=== PATIENT | female | born 1940 | race Caucasian/White ===

== ENCOUNTER 2016-12-20 11:17 | Inpatient (IN) | payer MEDICARE, BC ==
--- NOTE | 2016-12-08 15:45 | HP ---
HISTORY AND PHYSICAL: DATE OF SURGERY: 12/20/16 SURGEON: Lucy Warner MD * (DICTATED BY KOBE FU) PROCEDURE: Right total hip arthroplasty. CHIEF COMPLAINT: Right hip pain. HISTORY OF PRESENT ILLNESS: Ms. Juarez is a 76-year-old female with continued complaints of right hip pain secondary to advanced osteoarthritis. She has failed conservative management and has elected to proceed with a right total hip arthroplasty, which is scheduled for 12/20/[address] Warner. PAST MEDICAL HISTORY: Osteoarthritis. PAST SURGICAL HISTORY: Tonsillectomy, adenoidectomy. CURRENT MEDICATIONS: 1. Naproxen. 2. Triamcinolone acetonide cream. ALLERGIES: LAMISIL. FAMILY HISTORY: Rheumatoid arthritis and Parkinson's. SOCIAL HISTORY: She is a 76-year-old female. She lives with her . She does not smoke or use drugs. She uses occasional alcohol. REVIEW OF SYSTEMS: A complete 14-point review of systems was reviewed with the patient, was all negative and noncontributory. PHYSICAL EXAMINATION GENERAL: She is well developed, well nourished, in no acute distress. VITAL SIGNS: She stands 5 feet 1 inch tall and weighs 137 pounds. Blood pressure is 128/70, heart rate is 86. HEENT: Normocephalic, atraumatic. NECK: Supple. No palpable lymph nodes. CARDIO: Regular rate and rhythm. Strong S1, S2. ABDOMEN: Soft, nontender, nondistended. NEUROLOGICAL: Alert and oriented x3. Cranial nerves II through XII are intact. MUSCULOSKELETAL: Right lower extremity, the skin is intact. There are no open wounds or abrasions. She has decreased internal and external rotation of her right hip. She walks with a slightly antalgic-type gait favoring her right leg , 2+ dorsalis pedis pulses, intact sensation, and all of her lower extremity muscle group strengths are intact at 5/5. ASSESSMENT AND PLAN: Ms. Juarez is a 76-year-old female with complaints of right hip pain secondary to advanced osteoarthritis. She has failed conservative management and has elected to proceed with a right total hip arthroplasty, which is scheduled on 12/20/[address] Warner discussed the risks and benefits of the surgery and all of her questions were answered. Percocet, Colace, and Coumadin were sent to her pharmacy for postoperative pain control and DVT prophylaxis. She will see Dr. Warner back 2 weeks after the surgery. KOBE FU [id number]/[facility] #: [id number] MTDD
[~2016-12-20 11:17] MED LIST: Buffered Lidocaine 0.9% SYRIN* 5 ML/SYR SYRINGE INTRADERM ONE; Famotidine IV* 10 MG/ML 2 ML (20 mg) IV ONE; Metoclopramide TAB* 10 MG PO ONE
[2016-12-20] MEDS ORDERED: Famotidine IV* 10 MG/ML 2 ML (20 mg) ONE (11:30)
[2016-12-20] MEDS ORDERED: Metoclopramide TAB* 10 MG ONE (11:30)
[2016-12-20] MEDS ORDERED: Buffered Lidocaine 0.9% SYRIN* 5 ML/SYR SYRINGE ONE (11:31)
[2016-12-20] MEDS ORDERED: ceFAZolin 2 GM PREMIX (*) 50 ML IVPB ONE (11:31)
[2016-12-20] MEDS ORDERED: Dexamethasone IV* 4 MG/ML 1 ML (4 MG) ONE (12:37)
[2016-12-20] MEDS ORDERED: Morphine PF AMP (0.5MG/ML)* 5 MG/10 ML AMP ONE (12:37)
[2016-12-20] MEDS ORDERED: Ondansetron INJ* 2 MG/ML VIAL ONE (12:37)
[2016-12-20] MEDS ORDERED: Propofol* 10 MG/ML 20 ML BTL IV PUSH ONE ×2 (12:37→14:14)
[2016-12-20] MEDS ORDERED: Ketorolac INJ* 30 MG/ML 1 ML VIAL ONE (12:37)
[2016-12-20] MEDS ORDERED: Midazolam* 1 MG/ML 5 ML VIAL (5 MG) ONE (12:37)
[2016-12-20] MEDS ORDERED: Bupivacaine 0.5% SDV PF* 30 ML VIAL ONE (12:37)
[2016-12-20] MEDS ORDERED: Lidocaine 2% PF * 5 ML VIAL ONE (12:37)
[2016-12-20] MEDS ORDERED: fentaNYL* 50 MCG/ML 2 ML VIAL (100 MCG VIAL) ONE (12:37)
[2016-12-20] MEDS ORDERED: KETAMINE HCL* 50 MG/ML 10 ML VIAL ONE (12:37)
[2016-12-20] MEDS ORDERED: Phenylephrine INJ* 10 MG/ML 1 ML VIAL (10 MG) ONE ×2 (14:11→14:14)
[2016-12-20] MEDS ORDERED: Phenylephrine INJ* 50 MG in NS 0.9% 250 ML* 245 ML IV PRN (15:40)
[2016-12-20] MEDS ORDERED: Ondansetron INJ* 2 MG/ML VIAL IV PRN (15:40)
[2016-12-20] MEDS ORDERED: fentaNYL* 50 MCG/ML 2 ML VIAL (100 MCG VIAL) IV PRN (15:40)
[2016-12-20] MEDS ORDERED: diPHENhydraMINE IV* 50 MG/ML 1 ml VIAL (BENADRYL) IV PRN ×2 (15:40→15:43)
[2016-12-20] MEDS ORDERED: oxyCODONE/Acetamin 5/325 MG* TAB PO PRN ×2 (15:43)
[2016-12-20] MEDS ORDERED: EPHEDrine (Pressors)* 50 MG/ML VIAL IV PUSH PRN (15:43)
[2016-12-20] MEDS ORDERED: Lactated Ringers 500 ml BAG* 500 ML IV PRN (15:43)
--- NOTE | 2016-12-20 15:46 | RAD ---
HISTORY: Right hip replacement COMPARISONS: November 01, 2016 VIEWS: 1, portable intraoperative views of the pelvis during hip arthroplasty FINDINGS: The patient is status post right hip arthroplasty with a temporary femoral sizing component. IMPRESSION: LIMITED PORTABLE VIEW OF THE PELVIS DURING RIGHT HIP ARTHROPLASTY
[2016-12-20] MEDS ORDERED: Naloxone* 0.4 MG/ML 1 ML VIAL IV PRN (15:47)
[2016-12-20] MEDS ORDERED: Ropivacaine* 300 MG in NS 0.9% 250 ML* 240 ML EPIDURAL SCH (16:00)
--- NOTE | 2016-12-20 16:18 | RAD ---
Indication: Right hip replacement. Single view of the right hip taken in the operating room demonstrates femoral reamer and acetabular cup is in place. IMPRESSION: Intraoperative control films for right hip arthroplasty.
[2016-12-20] MEDS ORDERED: Acetaminophen TAB* 325 MG PO PRN (16:43)
[2016-12-20] MEDS ORDERED: Polyethylene Glycol 3350* 17 GM PACKET PO PRN (16:46)
[2016-12-20] MEDS ORDERED: Bisacodyl SUPP* 10 MG SUPP PR PRN (16:46)
[2016-12-20] MEDS ORDERED: Magnesium Hydroxide LIQ* 30 ML UDC PO PRN (16:46)
--- NOTE | 2016-12-20 17:37 | RAD ---
INDICATION: Status post total right hip replacement surgery. COMPARISON: Comparison is made with a prior intraoperative study of the same day. TECHNIQUE: AP and lateral films of the right hip were obtained. FINDINGS: The patient is status post total right hip replacement surgery. The bones and prostheses are in normal alignment. There is air within the soft tissues consistent with the patient's recent surgery. IMPRESSION: STATUS POST TOTAL RIGHT HIP REPLACEMENT SURGERY.
--- NOTE | 2016-12-20 17:38 | RAD ---
INDICATION: Status post total right hip replacement surgery. COMPARISON: Comparison is made with a intraoperative study of the same day. TECHNIQUE: An AP view of the pelvis was obtained. FINDINGS: The patient is status post total right hip replacement surgery. The bones and prostheses are in normal alignment. There is air within the surrounding soft tissues consistent with the patient's recent surgery. Note is made of moderate osteoarthritic change in the left hip. IMPRESSION: STATUS POST TOTAL RIGHT HIP REPLACEMENT SURGERY.
[2016-12-20] MEDS: Ondansetron INJ* 2 MG/ML VIAL IV PRN (20:49)
[2016-12-20] MEDS ORDERED: Warfarin TAB(*) 6 MG PO ONE (21:00)
[2016-12-20] MEDS: ceFAZolin 1 GM VIAL(*) 1 GM in NS 0.9% 50 ML* 50 ML IVPB SCH (21:51)
[2016-12-20] MEDS: Docusate CAP* 100 MG PO SCH (22:46)
[2016-12-21] MEDS: Ondansetron INJ* 2 MG/ML VIAL IV PRN (04:52)
[2016-12-21] MEDS: ceFAZolin 1 GM VIAL(*) 1 GM in NS 0.9% 50 ML* 50 ML IVPB SCH ×2 (05:47→13:16)
[2016-12-21] MEDS ORDERED: Morphine INJ* 2 MG/ML 1 ML SYRINGE (TWO MG - NEW SYRINGE VERSION) IV PRN (06:00)
[2016-12-21] MEDS ORDERED: oxyCODONE TAB* 5 MG TAB PO PRN (06:00)
[2016-12-21] MEDS ORDERED: diPHENhydraMINE IV* 50 MG/ML 1 ml VIAL (BENADRYL) IV PRN (06:00)
[2016-12-21] MEDS ORDERED: Ondansetron TAB* 4 MG PO PRN (06:00)
[2016-12-21] MEDS ORDERED: oxyCODONE/Acetamin 5/325 MG* TAB PO PRN (06:00)
[2016-12-21 06:32] LABS: Hematocrit 24 % (35-47); Hemoglobin 8.1 g/dl (12.0-16.0)
[2016-12-21 06:48] LABS: BUN/Creatinine Ratio 23.9 (8-20); Calcium 8.9 mg/dL (8.6-10.3); EGFR African American 102.4 (>60); EGFR Non-African American 79.6 (>60); Potassium 4.3 mmol/L (3.5-5.0)
--- NOTE | 2016-12-21 07:55 | PN ---
Progress Note - Progress Note Date of Service: 12/21/16 SOAP: Subjective: pt resting comfortably with no complaints, pain well controlled with current meds Objective: Vital Signs Temp Pulse Resp BP Pulse Ox 98.1 F 81 18 103/49 97 12/21/16 07:27 12/21/16 07:27 12/21/16 07:27 12/21/16 07:27 12/21/16 07:27 Laboratory Last Values Hgb 8.1 g/dl (12.0-16.0) L 12/21/16 05:43 Hct 24 % (35-47) L 12/21/16 05:43 INR (Anticoag Therapy) 0.89 (0.89-1.11) 12/21/16 05:43 Sodium 132 mmol/L (133-145) L 12/21/16 05:43 Potassium 4.3 mmol/L (3.5-5.0) 12/21/16 05:43 Chloride 102 mmol/L (101-111) 12/21/16 05:43 Carbon Dioxide 23 mmol/L (22-32) 12/21/16 05:43 Anion Gap 7 mmol/L (2-11) 12/21/16 05:43 BUN 17 mg/dL (6-24) 12/21/16 05:43 Creatinine 0.71 mg/dL (0.51-0.95) 12/21/16 05:43 Est GFR ( Amer) 102.4 (>60) 12/21/16 05:43 Est GFR (Non-Af Amer) 79.6 (>60) 12/21/16 05:43 BUN/Creatinine Ratio 23.9 (8-20) H 12/21/16 05:43 Glucose 136 mg/dL (70-100) H 12/21/16 05:43 Calcium 8.9 mg/dL (8.6-10.3) 12/21/16 05:43 incision: c/d/i PE: NVI Assessment: s/p right BEV Plan: [1) continue PT/OT-WBAT 2) Lovenox/ coumadin for DVT prophylaxis 3) Abx for 24 hours post-op
[2016-12-21] MEDS: oxyCODONE/Acetamin 5/325 MG* TAB PO PRN ×2 (09:11→18:51)
[2016-12-21] MEDS: Docusate CAP* 100 MG PO SCH ×2 (09:12→20:34)
[2016-12-21] MEDS ORDERED: Enoxaparin(*) 30 MG/0.3 ML SYR SUBCUT SCH (13:00)
--- NOTE | 2016-12-21 15:20 | OP ---
OPERATIVE NOTE: DATE OF OPERATION: 12/20/16 - Inpatient, [facility] room 350-02 DATE OF : 36 ATTENDING SURGEON: Lucy Warner MD DATA COMMUNICATIONS TECHNICIAN: KOBE Khoury Ms. Abreu did help throughout the procedure with preparation of the leg, wound retraction, manipulation of the hip and wound closure. ANESTHESIOLOGIST: Dr. Genao. ANESTHESIA: Spinal. PRE-OP DIAGNOSIS: Severe end-stage degenerative osteoarthritis of the right hip joint. POST-OP DIAGNOSIS: Severe end-stage degenerative osteoarthritis of the right hip joint. PROCEDURE PERFORMED: Right total hip arthroplasty with acetabular autograft, bone autografting. HARDWARE USED: An uncemented [place] total hip arthroplasty hardware with a cup , a Tritanium hemisphere cluster hole shell 52D, a single 20-mm and a single 25- mm screw were used. Trident X3 10-degree polyethylene insert 32B was chosen. For the femoral stem, an Accolate TMZF size 3.5 with a 127-degree neck was used. For the head, a Biolox delta ceramic V40 femoral head 32 -4. COMPLICATIONS: None. EBL: 300 cc. SPECIMENS: Femoral head and acetabulum sent to pathology. BRIEF HISTORY/INDICATION: Ms. Juarez is a 76-year-old female with at least 1 year of increasingly severe right hip pain. She failed conservative management with antiinflammatory, pain medications, physical therapy, and ambulatory assistive devices. Her radiographs confirmed moxz-ie-vocl arthritis and significant subchondral sclerosis and cyst formation. She elected to undergo right total hip arthroplasty due to continued pain and decreased quality of life. Informed consent was obtained from the patient. She understood the risks of the surgery included, but were not limited to bleeding, infection, damage to nearby structures, continued pain, need for further surgery, intraoperative fracture, nerve palsy, hardware failure or loosening, dislocation , leg length discrepancy, stroke, heart attack, blood clot and . She wished to proceed. INTRAOPERATIVE FINDINGS: Intraoperatively, the patient was noted to have severe loss of cartilage along the femoral head and acetabulum. Acetabulum had subchondral cyst formation, which was significant and required autografting with acetabular bone reamings. The patient was noted to have significant osteopenia. DESCRIPTION OF PROCEDURE: Ms. Juarez was identified in the preanesthesia unit. Her right lower extremity was marked as the correct operative side. Informed consent was obtained and signed and placed in the chart. The patient was taken to the operating room and placed under spinal anesthesia. A Martínez catheter was placed. She was placed on the left lateral decubitus position on the PEG board. All bony prominences were well padded. Right lower extremity was prepped and draped in the usual sterile fashion. Preop time-out was made to correctly identity the patient's side and site. Appropriate perioperative antibiotics were given within 1 hour of incision. A 12-cm posterior hip incision was made with a 10 blade and carried down to the lateral fascial layer. The 10 blade was used to make an incision in the lateral fascia in line with skin incision. A Charnley retractor was placed. The piriformis and conjoint tendons were identified. These were elevated off the posterolateral femur using electrocautery and tagged with #5 Ethibonds. Electrocautery was next used to make a standard posterolateral capsular flap and this was also tagged with #5 Ethibonds. The hip was carefully dislocated. There was complete loss of cartilage along the femoral head with deformation of the femoral head. Acetabulum was also deformed with extensive osteophyte formation and thin anterior and posterior armstrong. There was visible subchondral sclerosis and cyst formation. Lesser troch to the center of the femoral head measured 50 mm. Oscillating saw was used to make appropriate femoral neck cut. The femur was carefully retracted anteriorly. After appropriate placement of retractors, the acetabulum was visualized. Long-handled knife was used to remove any remaining labrum from the acetabular rim. The acetabulum was carefully and sequentially reamed up to a size #51. Size-51 reamer had excellent fit as well as bleeding subchondral bone bed. There was significant subchondral cyst formation. Curette was used to remove any cystic material and this area was packed with bone autograft from acetabular reamings. 51 trial was placed and had satisfactory fit. Final implant chosen was a 52-mm D Tritanium cluster hole shell. This was impacted into the acetabulum without difficulty. The cup was stable with appropriate anteversion and abduction angles. A single 20-mm and a single 25-mm screw was placed in the superior posterior quadrants for extra stability. A Trident X3 10 degree polyethylene insert was chosen size 32B. This was impacted into the acetabulum without difficulty. Stability of the insert was checked and rechecked and noted to be stable. Attention was next turned to preparation of the femur. Femur was noted to be quite active osteopenic. Canal finder was used to enter the femur. Femur was sequentially broached up to a size 3.5. 3.5 broach had excellent fit and appropriate anteversion. A 1.7 degree neck trial with a 32 -4 head trial was chosen. Lesser troch to the center of the femoral head measured 50 mm. The hip was reduced and taken through a range of motion. The hip was stable in all positions. There was good soft tissue tension and appropriate leg lengths. The hip was carefully dislocated. All trials were carefully removed. Final implant chosen was an Accolade TMZF size 3.5 with a 127-degree neck. This was carefully impacted into the femoral canal. There was excellent stability and appropriate anteversion. A Biolox delta ceramic V40 femoral head, 36 -4 was chosen as the final implant. This was impacted on to the femoral neck without difficulty. The hip was carefully reduced and taken through a range of motion. The hip was stable in all positions. The hip was copiously irrigated with sterile saline. Previously tagged tendons and capsules were reapproximated to the posterolateral femur through 2 trochanteric drill holes. The lateral fascial layer was closed using interrupted #1 Vicryl. The rest of the incision was closed in a layered fashion using 0 and 2-0 Vicryls. Skin was closed using running 3-0 Monocryl and Dermabond. Sterile Adaptic, 4x4s, and paper tape were used to cover the incision. The patient's anesthesia was reversed without difficulty. She was taken to the PACU in stable condition. Intended weightbearing will be weightbearing as tolerated with posterior hip precautions. Intended DVT prophylaxis will be Coumadin with a Lovenox bridge. [id number]/[facility] #: [id number] JUAN CARLOS
[2016-12-21] MEDS ORDERED: Warfarin TAB(*) 6 MG PO SCH ×2 (17:00)
[2016-12-21] MEDS ORDERED: Scopolamine 1.5 mg* PATCH TRANSDERM SCH (18:00)
[2016-12-22] MEDS: oxyCODONE/Acetamin 5/325 MG* TAB PO PRN ×5 (00:01→22:25)
[2016-12-22 06:21] LABS: Comments Flag Yes
[2016-12-22 06:24] LABS: Hematocrit 19 % (35-47)
[2016-12-22 06:25] LABS: Hemoglobin 6.4 g/dl (12.0-16.0)
[2016-12-22] MEDS: Docusate CAP* 100 MG PO SCH ×2 (08:34→22:22)
--- NOTE | 2016-12-22 11:03 | PN ---
Progress Note - Progress Note Date of Service: 12/22/16 SOAP: Subjective: []Patient seen at bedside, receiving blood transfusion, feeling well overall. She currently denies dizziness, SOB or CP. Pain is well managed right hip. Objective: [] Vital Signs Temp 98.1 F 12/22/16 06:35 Pulse 78 12/22/16 06:35 Resp 16 12/22/16 10:12 BP 98/50 12/22/16 06:39 Pulse Ox 93 12/22/16 06:35 Intake & Output 12/21/16 12/22/16 12/22/16 18:59 06:59 18:59 Intake Total 1390 1400 240 Output Total 600 520 Balance 790 880 240 Intake: IV Fluids 970 LR 970 IVPB 120 ABX - CEFAZOLIN 120 Oral 300 1400 240 Output: Urine 600 520 Laboratory Results - last 24 hr 12/22/16 12/22/16 12/22/16 06:04 06:04 06:36 Hgb 6.4 L* Hct 19 L INR (Anticoag Therapy) 1.64 H Blood Type AB Positive Antibody Screen Negative Crossmatch See Detail Right hip dressing dry and intact, changed this am by Dr. Warner calf NT and soft +DF/PF right ankle sensation intact Assessment: []s/p Right total hip arthroplasty POD #2 Plan: []PT/OT WBAT RLE 2 Units PRBC today Coumadin with Lovenox bridge- 4 mg today Home 12/23 with VNS if H+H stabilized.
[2016-12-22] MEDS ORDERED: Warfarin TAB(*) 4 MG PO ONE (17:00)
[2016-12-22 20:00] LABS: Hematocrit 29 % (35-47)
[2016-12-23] MEDS: oxyCODONE/Acetamin 5/325 MG* TAB PO PRN ×2 (02:47→08:35)
[2016-12-23 07:36] LABS: Hematocrit 27 % (35-47); Hemoglobin 9.4 g/dl (12.0-16.0)
[2016-12-23 07:52] VITALS: BP 122/45
[2016-12-23] MEDS: Docusate CAP* 100 MG PO SCH (08:35)
--- NOTE | 2016-12-23 09:23 | PN ---
Progress Note - Progress Note Date of Service: 12/23/16 SOAP: Subjective: []Patient seen at bedside, she is feeling well. Therapy reports she has done very well with her therapy exercises and is ready to go home. Patient hopes to go home today before lunch. Objective: [] Vital Signs Temp 98.2 F 12/23/16 07:33 Pulse 80 12/23/16 07:33 Resp 16 12/23/16 08:35 BP 122/45 12/23/16 07:33 Pulse Ox 95 12/23/16 07:40 Intake & Output 12/22/16 12/23/16 12/23/16 18:59 06:59 18:59 Intake Total 747 780 Output Total 300 1100 Balance 447 -320 Intake: Oral 440 780 Packed Cells 307 Output: Urine 300 1100 Other: # Bowel Movements 0 Laboratory Results - last 24 hr 12/22/16 12/22/16 12/23/16 06:36 19:40 07:03 Hgb 10.0 L 9.4 L Hct 29 L 27 L INR (Anticoag Therapy) Blood Type AB Positive Antibody Screen Negative Crossmatch See Detail 12/23/16 07:03 Hgb Hct INR (Anticoag Therapy) 2.27 H Blood Type Antibody Screen Crossmatch Right thigh with mild edema dressing C/D/I calf NT +DF/PF right foot neuro intact Assessment: []s/p Right total hip arthroplasty POD #3 Plan: []PT this am Hold Coumadin today Home with VNS today Follow up with Dr. Warner as scheduled.
--- NOTE | 2016-12-24 00:45 | DS ---
AMENDED REPORT NOW INCLUDES COSIGNER DESIGNATION - ESIGNED BEFORE ADJUSTMENT DISCHARGE SUMMARY: DATE OF ADMISSION: 12/20/16 DATE OF DISCHARGE: 12/23/16 ATTENDING PHYSICIAN: Dr. Lucy Warner * (DICTATED BY KOBE HYMAN) ADMISSION DIAGNOSIS: Severe end-stage osteoarthritis of the right hip joint. DISCHARGE DIAGNOSES: 1. Severe end-stage osteoarthritis of the right hip joint. 2. Acute postoperative anemia secondary to blood loss. SURGERY PERFORMED: Right total hip arthroplasty with acetabular autograft and bone autografting. HOSPITAL COURSE: The patient is a 76-year-old female with at least 1 year of increasingly severe right hip pain. She was unable to tolerate the pain and failed conservative management with antiinflammatories, pain medications, physical therapy, and ambulatory assistive devices. Her x-rays revealed bone-on -bone osteoarthritis with subchondral sclerosis and cyst formation. She elected to proceed with the aforementioned procedure and was taken to the operating room under the care of Dr. Lucy Warner on the date of 12/20/16. She tolerated the procedure well and left the operating room in stable condition. Postoperative day #1, she had a low hemoglobin and hematocrit of 6.4 and 19 and was transfused with 2 units of packed red blood cells. Her hemoglobin and hematocrit rebounded and on postoperative day #3, her H and H was 9.4 and 27. She progressed very nicely with physical therapy and occupational therapy goals and other than the postoperative anemia, had no other complications postoperatively. CONDITION ON DISCHARGE: She was afebrile. Her vital signs were stable. Her neurovascular status was grossly intact in the right lower extremity with full dorsiflexion and plantar flexion of her right ankle. Her right hip incision was healing without evidence of infection. She had some mild edema of the thigh and buttock region. Her circulation and sensation were intact distally. PLAN: Discharged to home, continue to bear weight as tolerated on the right lower extremity. Continue with physical therapy exercise program and maintain hip precautions as taught. She is scheduled to follow up in the office with Dr. Warner in roughly 10 days. She will continue on Coumadin for her postoperative DVT prophylaxis. She will not take any Coumadin on her discharge day, , 12/23/16; she will take 2 mg of Coumadin on 12/24/16; 2 mg of Coumadin on 12/25/16; 2 mg of Coumadin on 12/26/16. She will have a repeat blood draw on 12/27/16, with dosages to follow. She will continue the Colace and the Percocet for pain as needed. She will follow up in the office as scheduled and call if she has any problems with increased pain, increased drainage, fever, chills, calf pain, or swelling. KOBE HYMAN [id number]/[facility] #: [id number] MTDNancy
[2016-12-24] MEDS ORDERED: Scopolomine PATCH Remove* 1 NOTE MISC PATCH OFF SCH (18:00)
== END 2016-12-23 11:50 | disposition home health service (06) | DRG 470 ==
LOC: AA 11:17 → SSU 19:27
PROVIDERS: ADMIT Orthopaedic Surgery Adult Reconstructive Orthopaedic Surgery; ATTEND Orthopaedic Surgery Adult Reconstructive Orthopaedic Surgery
PROC: 0SR904A Replacement of Right Hip Joint with Ceramic on Polyethylene Synthetic Substitute, Uncemented, Open Approach (ICD-10-PCS; principal; 2016-12-20 13:00)
PROC: 30233N1 Transfusion of Nonautologous Red Blood Cells into Peripheral Vein, Percutaneous Approach (ICD-10-PCS; 2016-12-22)
DX: M16.11 Unilateral primary osteoarthritis, right hip (principal); D62 Acute posthemorrhagic anemia; M85.851 Other specified disorders of bone density and structure, right thigh; M25.751 Osteophyte, right hip; G43.909 Migraine, unspecified, not intractable, without status migrainosus; Z88.8 Allergy status to other drugs, medicaments and biological substances; Z82.61 Family history of arthritis
CPT/HCPCS: 36415; 72170; 80048; 85014; 85018; 85610; 86850; 86900; 86901; 86922; A9270-GY; C1713; C1776; J0690; J1100; J1650; J1885; J2250; J2270; J2405; J2704; J2795; J3010; P9040

== ENCOUNTER 2017-03-20 08:50 | Emergency (ER) | payer MEDICARE, BC ==
--- NOTE | 2017-03-20 09:18 | UC ---
Respiratory Complaint HPI - HPI Summary HPI Summary: Patient presents with three day onset complaints of runny nose, sore throat, nonproductive cough. She also reports mild nausea. She states she has been taking mucinex. She denies any fever, chills, chest pain, dyspena, abdominal pain, vomiting, or diarrhea. - History of Current Complaint Chief Complaint: UCRespiratory Stated Complaint: COUGH Time Seen by Provider: 03/20/17 09:00 Hx Obtained From: Patient ?: No Onset/Duration: Gradual Onset, Lasting Days Severity Initially: Mild Severity Currently: Mild Character: Cough: Nonproductive Aggravating Factors: Nothing Alleviating Factors: Spontaneous Resolution Associated Signs And Symptoms: Positive: URI, Nasal Congestion - Risk Factors Pulmonary Embolism Risk Factors: Negative Cardiac Risk Factors: Negative Pseudomonas Risk Factors: Negative - Allergies/Home Medications Allergies/Adverse Reactions: Allergies Allergy/AdvReac Type Severity Reaction Status Date / Time Benzyl Alcohol Allergy See Comment Verified 03/20/17 08:59 [From Lamisil AT Cream] Terbinafine Allergy See Comment Verified 03/20/17 08:59 [From Lamisil AT Cream] PMH/Surg Hx/FS Hx/Imm Hx Previously Healthy: Yes - Surgical History Surgical History: Yes Surgery Procedure, Year, and Place: L hip replacement 2017. tonsils adenoids. oral surgery in office - Family History Known Family History: Positive: Cardiac Disease - Social History Occupation: Retired Lives: Alone Alcohol Use: Daily Alcohol Amount: 2 glasses wine per night Substance Use Type: None Smoking Status (MU): Light Every Day Tobacco Smoker Amount Used/How Often: reports 4 cigs per day for 60 years - Immunization History Most Recent Influenza Vaccination: 2016 Most Recent Pneumonia Vaccination: unsure Review of Systems Constitutional: Negative Skin: Negative Eyes: Negative ENT: Sore Throat, Sinus Congestion Respiratory: Cough Cardiovascular: Negative Gastrointestinal: Negative Genitourinary: Negative Motor: Negative Is Patient Immunocompromised?: No All Other Systems Reviewed And Are Negative: Yes Physical Exam Triage Information Reviewed: Yes Appearance: Well-Appearing Vital Signs: Initial Vital Signs Temp 97.5 F 03/20/17 09:01 Pulse 98 03/20/17 09:01 Resp 18 03/20/17 09:01 Pulse Ox 97 03/20/17 09:01 Vital Signs Reviewed: Yes Eye Exam: Normal ENT Exam: Normal Neck exam: Normal Neck: Positive: 1 Respiratory Exam: Normal Cardiovascular Exam: Normal Skin Exam: Normal UC Diagnostic Evaluation - Laboratory O2 Sat by Pulse Oximetry: 97 Respiratory Course/Dx - Course Course Of Treatment: Patient presents with an unremarkable past medical history. Her VSS, and she was afebrile. Physical examination was benign, she was in no respiratory distress. He clinical findings are consistent with a viral syndrome, and I recommend she continue her current medical plan, rest, fluids, mucinex and monitor for symtpom improvement, if for any reason her symtpoms do not improve as anticpated she was told to follow up with PCP. - Differential Dx/Diagnosis Differential Diagnosis/HQI/PQRI: Other - uri Provider Diagnoses: uri Discharge - Discharge Plan Condition: Stable Disposition: HOME Patient Education Materials: Upper Respiratory Infection (ED) Referrals: Michel Figueroa MD [Primary Care Provider] -
== END 2017-03-20 09:24 | disposition home or self-care (01) ==
LOC: UCEAST 08:50
DX: J06.9 Acute upper respiratory infection, unspecified (principal); Z96.642 Presence of left artificial hip joint; F17.210 Nicotine dependence, cigarettes, uncomplicated
CPT/HCPCS: 99211; G0463

== ENCOUNTER 2017-04-12 06:19 | Inpatient (IN) | payer MEDICARE, BC ==
--- NOTE | 2017-04-05 09:40 | HP ---
HISTORY AND PHYSICAL: DATE OF ADMISSION/SURGERY: 04/12/17 DATE OF OFFICE VISIT: 04/04/17 SURGEON: Lucy Warner MD * (DICTATED BY KOBE FU) PROCEDURE: Left total hip arthroplasty. CHIEF COMPLAINT: Left hip pain. HISTORY OF PRESENT ILLNESS: Ms. Juarez is a 76-year-old female with severe end- stage osteoarthritis of the left hip. She has failed conservative management and elected to proceed with the left total hip arthroplasty, which is scheduled for 04/12/17. PAST MEDICAL HISTORY: Osteoarthritis. PAST SURGICAL HISTORY: Tonsillectomy and right total hip arthroplasty. CURRENT MEDICATIONS: None. ALLERGIES: To LAMISIL. FAMILY HISTORY: Rheumatoid arthritis and Parkinson's. SOCIAL HISTORY: She is a 76-year-old female. She lives with her . She smokes 4 cigarettes a day. She does not drink. She denies use of drugs. She uses occasional alcohol. REVIEW OF SYSTEMS: A complete 14-point review of systems was reviewed with the patient; it was all negative or noncontributory. She denies a history DVT, PE, hepatitis C, or HIV. PHYSICAL EXAMINATION GENERAL: She is well developed, well nourished, in no acute distress. VITAL SIGNS: She stands 5 feet 2 inches tall, weighs 133 pounds. Her blood pressure is 150/76, her heart rate is 87. HEENT: Normocephalic, atraumatic. NECK: Supple. No palpable lymph nodes. PULMONARY: Lungs are clear to auscultation bilaterally. CARDIO: Regular rate and rhythm. Strong S1 and S2. ABDOMEN: Soft, nontender, nondistended. NEUROLOGIC: She is alert and oriented x3. Cranial nerves II through XII are intact. MUSCULOSKELETAL: Left lower extremity, the skin is intact. There are no open wounds or abrasions. She has decreased internal and external rotation of her left hip. She walks with an antalgic-type gait favoring the left leg. She has 2+ dorsalis pedis pulses. She has intact sensation. Her lower extremity muscle group strengths are intact at 5/5. ASSESSMENT AND PLAN: Ms. Juarez is a 76-year-old female with severe end-stage osteoarthritis of the left hip. She has failed conservative management and elected to proceed with left total hip arthroplasty, which is scheduled for with Dr. Warner. Dr. Warner discussed the risks and benefits of the surgery at today's visit and all of her questions were answered. Coumadin was sent to her pharmacy for postoperative DVT prophylaxis. She has a prescription for both Percocet and Colace. She will follow with Dr. Warner 2 weeks after the surgery. KOBE FU [id number]/[facility] #: [id number] JUAN CARLOS
[~2017-04-12 06:19] MED LIST changes: -Famotidine IV* 10 MG/ML 2 ML (20 mg) IV ONE; -Metoclopramide TAB* 10 MG PO ONE
[2017-04-12] MEDS ORDERED: ceFAZolin 2 GM PREMIX (*) 2 GM/50 ML BAG IVPB ONE (07:02)
[2017-04-12] MEDS ORDERED: Buffered Lidocaine 0.9% SYRIN* 5 ML/SYR SYRINGE ONE (07:02)
[2017-04-12] MEDS ORDERED: Midazolam* 1 MG/ML 2 ML VIAL (2 MG) ONE ×2 (07:37→09:01)
[2017-04-12] MEDS ORDERED: fentaNYL* 50 MCG/ML 2 ML VIAL (100 MCG VIAL) ONE (07:37)
[2017-04-12] MEDS ORDERED: Bupivacaine 0.5% SDV PF* 10-30ML VIAL ONE ×2 (07:47→08:13)
[2017-04-12] MEDS ORDERED: Morphine PF AMP (0.5MG/ML)* 5 MG/10 ML AMP ONE (08:00)
[2017-04-12] MEDS ORDERED: diPHENhydraMINE IV* 50 MG/ML 1 ml VIAL (BENADRYL) ONE (08:13)
[2017-04-12] MEDS ORDERED: EPHEDrine (Pressors)* 50 MG/ML VIAL ONE (08:22)
[2017-04-12] MEDS ORDERED: Scopolamine 1.5 mg* PATCH ONE (08:22)
[2017-04-12] MEDS ORDERED: Dexamethasone IV* 4 MG/ML 1 ML (4 MG) ONE (08:22)
[2017-04-12] MEDS ORDERED: Famotidine IV* 10 MG/ML 2 ML (20 mg) ONE (08:22)
[2017-04-12] MEDS ORDERED: Dexmedetomidine* 200 MCG/2 ML 2 ML VIAL ONE (08:30)
[2017-04-12] MEDS ORDERED: oxyCODONE TAB* 5 MG TAB PO PRN (09:17)
[2017-04-12] MEDS ORDERED: fentaNYL* 50 MCG/ML 2 ML VIAL (100 MCG VIAL) IV PRN (09:17)
[2017-04-12] MEDS ORDERED: Ondansetron INJ* 2 MG/ML VIAL IV PRN (09:17)
[2017-04-12] MEDS ORDERED: diPHENhydraMINE IV* 50 MG/ML 1 ml VIAL (BENADRYL) IV PRN (09:17)
[2017-04-12] MEDS ORDERED: Nalbuphine* 20 MG/ML 1 ML VIAL IV PRN (09:17)
[2017-04-12] MEDS ORDERED: oxyCODONE/Acetamin 5/325 MG* TAB PO PRN (09:17)
[2017-04-12] MEDS ORDERED: Scopolamine PATCH Remove* 1 NOTE MISC PATCH OFF PRN (09:17)
[2017-04-12] MEDS ORDERED: Hetastarch in NS* 500 ML IV ONE (09:17)
[2017-04-12] MEDS ORDERED: Ketorolac INJ* 30 MG/ML 1 ML VIAL IV PRN (09:17)
[2017-04-12] MEDS ORDERED: Naloxone* 0.4 MG/ML 1 ML VIAL IV PRN ×2 (09:17)
[2017-04-12] MEDS ORDERED: Magnesium Hydroxide LIQ* 30 ML UDC PO PRN (09:44)
[2017-04-12] MEDS ORDERED: Bisacodyl SUPP* 10 MG SUPP PR PRN (09:44)
[2017-04-12] MEDS ORDERED: Cyclobenzaprine TAB* 10 MG PO PRN (09:44)
--- NOTE | 2017-04-12 10:12 | RAD ---
Indication: Intraoperative LEFT total hip replacement. Comparison: No relevant prior exams available on the [facility] for comparison. Technique: Crosstable RIGHT lateral decubitus AP pelvis and LEFT hip. Report: LEFT acetabular prosthesis component in place. Femoral component test fit/reamer device in place. No fracture visualized. IMPRESSION: Intraoperative control film.
--- NOTE | 2017-04-12 11:12 | RAD ---
HISTORY: Status post left hip arthroplasty COMPARISONS: March 16, 2017 VIEWS: 3, Frontal view of the pelvis with frontal and crosstable lateral views of the left hip FINDINGS: BONE DENSITY: Normal. BONES: The patient is status post bilateral hip arthroplasty. On the left, there is no hardware failure or osteolysis. JOINTS: The patient is status post bilateral hip arthroplasty. ALIGNMENT: There is no dislocation. SOFT TISSUES: Unremarkable. OTHER FINDINGS: None. IMPRESSION: STATUS POST BILATERAL HIP ARTHROPLASTY.
[2017-04-12] MEDS: Acetaminophen TAB* 325 MG PO SCH ×4 (13:20→22:08)
--- NOTE | 2017-04-12 15:36 | PN ---
Progress Note - Progress Note Date of Service: 04/12/17 SOAP: Subjective: []Patient seen at bedside due to low BP. She feels well without reported dizziness, SOB, fatigue or CP. Her pain is well controlled. She reports no cardiac history and no history of hypo or hypertension. Objective: []General: Appears mildly pale, but in NAD after 200 ml fluid. Checked on her again after 300 ml of fluid and color does appear better. Still in NAD Vitals: BP taken RUE measuring 93/44, patient has so far received 300 of the 500 ML bolus ordered by Dr. Salmeron LLE: Dressing CDI. Assessment: []POD 0 sp left total hip arthroplasty 04/12/16 Plan: []Recheck BP after fluid bolus If not improved or any symptoms, consult hospitalist Check H&H
[2017-04-12] MEDS: LR @ 125 MLS/HR IV SCH ×2 (15:50→20:55)
[2017-04-12 16:14] LABS: Hematocrit 25 % (35-47); Hemoglobin 8.5 g/dl (12.0-16.0)
[2017-04-12] MEDS ORDERED: Warfarin TAB(*) 6 MG PO ONE (17:00)
[2017-04-12] MEDS: ceFAZolin 1 GM VIAL(*) 1 GM in NS 0.9% 50 ML* 50 ML IVPB SCH (17:26)
[2017-04-12] MEDS: Docusate CAP* 100 MG PO SCH (20:58)
[2017-04-12] MEDS: Magnesium Hydroxide LIQ* 30 ML UDC PO SCH (20:58)
[2017-04-12] MEDS ORDERED: NS 0.9% 1000 ML* 1,000 ML IV ONE (21:56)
--- NOTE | 2017-04-12 21:59 | CONSULT ---
Consult Consult: Asked to evaluate patient by anesthesiology for low BPs earlier and ongoing low urine output. Mrs Juarez is a 76F POD zero elective L BEV, Negative CHF HX. Patient pleasant, alert, & oriented x3; denies discomfort. Tongue is dry, lips cracked, no peripheral edema. Assessment: plan intravascular volume depletion : encouraged PO intake : add 1L NS bolus after which LR to be increased to 125cc/hr : monitor Follow up call to nursing ~0500, urine output [id number] ~200cc visibly pattern vault clerk in color & blood pressure improved.
[2017-04-13] MEDS ORDERED: Morphine INJ* 2 MG/ML 1 ML SYRINGE (TWO MG - NEW SYRINGE VERSION) IV PRN (00:08)
[2017-04-13] MEDS ORDERED: oxyCODONE TAB* 5 MG TAB PO PRN (00:08)
[2017-04-13] MEDS ORDERED: Ondansetron INJ* 2 MG/ML VIAL IV PRN (00:08)
[2017-04-13] MEDS ORDERED: diPHENhydraMINE IV* 50 MG/ML 1 ml VIAL (BENADRYL) IV PRN (00:08)
[2017-04-13] MEDS: ceFAZolin 1 GM VIAL(*) 1 GM in NS 0.9% 50 ML* 50 ML IVPB SCH ×2 (00:30→07:41)
[2017-04-13 06:00] LABS: Hematocrit 21 % (35-47); Hemoglobin 7.1 g/dl (12.0-16.0); Mean Platelet Volume 7 um3 (7.4-10.4); Platelet Count 166 10^3/ul (150-450)
[2017-04-13 06:14] LABS: EGFR Non-African American 88.2 (>60)
[2017-04-13] MEDS: oxyCODONE/Acetamin 5/325 MG* TAB PO PRN ×3 (06:17→19:15)
[2017-04-13 06:24] LABS: INR 1.02 (0.77-1.02)
[2017-04-13] MEDS: LR @ 125 MLS/HR IV SCH (06:26)
--- NOTE | 2017-04-13 08:13 | PN ---
Progress Note - Progress Note Date of Service: 04/13/17 SOAP: Subjective: []Patient seen at bedside. She has 2 units PRBC ordered. Denies LLE pain, CP, SOB, dizziness, nausea. Objective: [] Vital Signs Temp 98.0 F 04/13/17 07:30 Pulse 79 04/13/17 07:30 Resp 16 04/13/17 08:00 BP 91/45 04/13/17 07:30 Pulse Ox 98 04/13/17 08:00 Intake & Output 04/12/17 04/13/17 04/13/17 18:59 06:59 18:59 Intake Total 2679 3546 Output Total 130 500 Balance 2549 3046 Weight 133 lb Intake: IV Fluids 2426 2111 HETASTARCH 500 LR 1926 1131 NS (0.9%) 980 IVPB 53 55 ABX - CEFAZOLIN 53 55 Oral 200 1380 Output: Martínez 100 500 Residual 30 Martínez 16 Fr 30 Laboratory Last Values Hgb 7.1 g/dl (12.0-16.0) L 04/13/17 05:52 Hct 21 % (35-47) L 04/13/17 05:52 Plt Count 166 10^3/ul (150-450) 04/13/17 05:52 MPV 7 um3 (7.4-10.4) L 04/13/17 05:52 INR (Anticoag Therapy) 1.02 (0.77-1.02) 04/13/17 05:52 Sodium 130 mmol/L (133-145) L 04/13/17 05:52 Potassium 3.9 mmol/L (3.5-5.0) 04/13/17 05:52 Chloride 101 mmol/L (101-111) 04/13/17 05:52 Carbon Dioxide 26 mmol/L (22-32) 04/13/17 05:52 Anion Gap 3 mmol/L (2-11) 04/13/17 05:52 BUN 14 mg/dL (6-24) 04/13/17 05:52 Creatinine 0.65 mg/dL (0.51-0.95) 04/13/17 05:52 Est GFR ( Amer) 113.4 (>60) 04/13/17 05:52 Est GFR (Non-Af Amer) 88.2 (>60) 04/13/17 05:52 BUN/Creatinine Ratio 21.5 (8-20) H 04/13/17 05:52 Glucose 107 mg/dL (70-100) H 04/13/17 05:52 Calcium 8.6 mg/dL (8.6-10.3) 04/13/17 05:52 Blood Type AB Positive 04/13/17 05:52 Antibody Screen Negative 04/13/17 05:52 Crossmatch See Detail 04/13/17 05:52 General: Well appearing, calm and cooperative, NAD LLE: Dressing CDI. DF/PF intact. DP/PT 2+ BL LE: Calves supple and nontender without erythema, edema or palpable cords. Assessment: []POD 1 sp left total hip arthroplasty 04/12, Dr Warner Acute bloodloss anemia Plan: []PT/OT WBAT Lovenox, coumadin 6 mg 2 units PRBC. Continued monitoring of BP and H&H. Hospitalists following
[2017-04-13] MEDS: Magnesium Hydroxide LIQ* 30 ML UDC PO SCH ×2 (09:46→20:27)
[2017-04-13] MEDS: Vitamin THERAPEUTIC TAB PO SCH (09:46)
[2017-04-13] MEDS: Enoxaparin(*) 30 MG/0.3 ML SYR SUBCUT SCH (09:46)
[2017-04-13] MEDS: Docusate CAP* 100 MG PO SCH ×2 (09:46→20:21)
--- NOTE | 2017-04-13 12:00 | OP ---
DATE OF OPERATION: 04/12/17 - ROOM #338 DATE OF : 36 SURGEON: Lucy Warner MD HAIRCUTTER: KOBE Khoury. Ms. Abreu did help throughout the procedure with preparation of the leg, wound retraction, manipulation of the hip, and wound closure. ANESTHESIOLOGIST: Dr. Salmeron. ANESTHESIA: Spinal. PRE-OP DIAGNOSIS: Severe end-stage degenerative osteoarthritis of the left hip. POST-OP DIAGNOSIS: Severe end-stage degenerative osteoarthritis of the left hip. OPERATIVE PROCEDURE: Left total hip arthroplasty, acetabular subchondral cyst autograft using femoral head autograft. COMPLICATIONS: None. ESTIMATED BLOOD LOSS: 300 cc. SPECIMEN: Bone and cartilage from the left hip sent to Pathology. HARDWARE USED: Trident hemispherical acetabular shell 48D with a 20-mm and a 60 -mm cancellous bone screw for the polyethylene and Trident X3 0-degree polyethylene insert 32D. For the stem, an Accolade TMZF size 3.5 with 127- degree neck and for the head, a Biolox delta ceramic V40 femoral head 32, -4. BRIEF HISTORY/INDICATIONS: Ms. Juarez is a 76-year-old female with years of increasingly severe left hip pain. She failed conservative treatment with antiinflammatories, pain medications, ambulatory assistive devices, and surgical therapy. Due to continued pain and decreased quality of life, she elected to undergo left total hip arthroplasty. Radiographs showed bone-on- bone arthritis with deformation of the femoral head. Informed consent was obtained from the patient. She understood the risks of surgery included, but were not limited to bleeding, infection, damage to nearby structures, continued pain, need for further surgery, intraoperative fracture, nerve palsy, hardware failure or loosening, dislocation, leg length discrepancy , stroke, heart attack, blood clot, and . She wished to proceed. INTRAOPERATIVE FINDINGS: Intraoperatively, the patient was noted to have deformed femoral head with subchondral collapse superiorly. Her acetabulum had extensive loss of cartilage and subchondral cyst along superior weightbearing dome. She had a very thin posterior acetabular . DESCRIPTION OF PROCEDURE: Ms. Juarez was identified in the preanesthesia unit. Her left lower extremity was marked as the correct operative side. Informed consent was signed and placed in the chart. The patient was taken to the operating room and placed under spinal anesthesia. A Martínez catheter was placed. The patient was placed in right lateral decubitus position on the PEG board and all bony prominence were well padded. Left lower extremity was prepped and draped in the usual sterile fashion. Preop time-out was made to correctly identify the patient side and site. Appropriate perioperative antibiotics were given within 1 hour of incision. A 12-cm posterior hip incision was made with a 10 blade and carried down to the lateral fascial layer. A new 10 blade used to make an incision in line with the skin incision. A Charnley retractor was placed. The piriformis and conjoined tendons were elevated off the posterolateral femur using electrocautery and tagged with #5 Ethibond. Next, electro-cautery was then used to make a standard posterolateral capsular flap and this was also tagged with #5 Ethibond. The patient's hip was carefully dislocated. Lesser troch to center of the femoral head measured 55 mm. Oscillating saw was used to make the appropriate femoral neck cut. The femoral head was removed. The femur was carefully retracted anteriorly. After appropriate placement of retractors, the acetabulum was easily visualized. Any remaining labrum was sharply removed with a long- handled knife. The acetabulum was sequentially reamed up to a size 47. 47 had a bleeding subchondral bone bed. There was superior subchondral cyst. A curette was used to remove this bone carefully. The subchondral cyst was packed with femoral head autograft. A 47 trial had excellent fit with appropriate anteversion and abduction angle. Final implant was the Trident 48D hemispherical acetabular shell. It was impacted into the acetabulum without difficulty. The cup was stable with appropriate anteversion and abduction angle. A single 60-mm and a single 20-mm screw was placed in the superoposterior quadrant for extra stability. Trident X3 0-degree polyethylene insert 32D was chosen. This was impacted into the acetabulum without difficulty. Attention was next turned to preparation of the proximal femur. Canal finder was used to enter the proximal femur. Proximal femur was sequentially broached up to a size 3.5. A 3.5 broach had a good fit and appropriate anteversion. A trial 127 degree neck with a 32 -4 head trial was placed. Lesser troch to center of the femoral head measured 56 mm. The hip was reduced and taken through a range of motion. The hip was stable in all positions. Leg length and soft tissue tension were appropriate. The hip was dislocated. All trials were removed. Final implant chosen was an Accolade TMZF size 3.5 with a 127-degree neck angle. This was impacted into the femoral canal without difficulty. The stem was stable with appropriate anteversion. Biolox delta V40 femoral head 32 -4 was chosen as the final implant. Lesser troch to the center of the femoral head measured 56 mm. The hip was reduced and taken through a range of motion. The hip was stable in all positions. The hip was copiously irrigated with sterile saline. Previously tagged capsular tendons were reapproximated to the posterolateral femur through 2 trochanteric drill holes. The lateral fascial layer was closed using interrupted #1 Vicryls. The rest of the incision was closed in a layered fashion using 0 and 2-0 Vicryls. Skin was closed using running 3-0 Monocryl and Dermabond. Sterile Adaptic, 4x4s, and paper tape were used to cover the incision. The patient's anesthesia was reversed without difficulty. She was taken to the PACU in stable condition. Intended weightbearing will be weightbearing as tolerated. Intended DVT prophylaxis will be Coumadin with a Lovenox bridge. [id number]/[facility] #: [id number] JUAN CARLOS
--- NOTE | 2017-04-13 16:09 | PN ---
Subjective Date of Service: 04/13/17 Interval History: Patient has no complaints. Patient states that she gets dizzy on standing with the "room spinning." Patient states that this happens occasionally at home. Patient denies having a recent workup for anemia. Patient denies palpitations, CP, SOB, or cough, or other signs of anemia. Patient states that she does not have any pain at rest and moderate pain with activity, but was able to ambulate well with PT. Patient denies dysuria, patient is making urine and passing flatus , no BM. Family History: Unchanged from Admission Social History: Unchanged from Admission Past Medical History: Unchanged from Admission Objective Active Medications: Bisacodyl (Dulcolax Supp*) 10 mg TN DAILY PRN PRN Reason: constipation Cyclobenzaprine HCl (Flexeril Tab*) 10 mg PO TID PRN PRN Reason: SPASMS Diphenhydramine HCl (Benadryl Iv*) 25 mg IV Q6H PRN PRN Reason: itching Docusate Sodium (Colace Cap*) 100 mg PO BID [facility] Last Admin: 04/13/17 09:46 Dose: 100 mg Enoxaparin Sodium (Lovenox(*)) 30 mg SUBCUT Q24H [facility] Last Admin: 04/13/17 09:46 Dose: 30 mg Lactated Ringer's (Lactated Ringers 1000 Ml Bag*) 1,000 mls @ 125 mls/hr IV PER RATE [facility] Last Admin: 04/13/17 06:26 Dose: 125 mls/hr Lactated Ringer's (Lactated Ringers 1000 Ml Bag*) 500 mls @ 1,000 mls/hr IV .BOLUS [facility] Magnesium Hydroxide (Milk Of Magnesia Liq*) 30 ml PO BID [facility] Last Admin: 04/13/17 09:46 Dose: Not Given Magnesium Hydroxide (Milk Of Magnesia Liq*) 30 ml PO Q6H PRN PRN Reason: constipation Morphine Sulfate (Morphine Inj (Syringe)*) 2 mg IV Q2H PRN PRN Reason: PAIN - UNCONTROLLED Multivitamins (Theragran Tab*) 1 tab PO DAILY [facility] Last Admin: 04/13/17 09:46 Dose: 1 tab Ondansetron HCl (Zofran Inj*) 4 mg IV Q6H PRN PRN Reason: nausea Oxycodone HCl (Roxycodone Tab*) 10 mg PO Q4H PRN PRN Reason: PAIN - SEVERE Oxycodone/Acetaminophen (Percocet 5/325 Tab*) 2 tab PO Q4H PRN PRN Reason: PAIN - MODERATE TO SEVERE Last Admin: 04/13/17 11:17 Dose: 2 tab Oxycodone/Acetaminophen (Percocet 5/325 Tab*) 1 tab PO Q4H PRN PRN Reason: PAIN - MODERATE Pharmacy Profile Note (Scopolamine Patch Remove*) 1 note PATCH OFF .AFTER 72 HOURS PRN PRN Reason: nausea Stop: 04/15/17 09:19 Warfarin Sodium (Coumadin Tab(*)) 6 mg PO ONCE@1700 ONE PRN Reason: Protocol Stop: 04/13/17 17:01 Vital Signs - 8 hr 04/13/17 04/13/17 04/13/17 08:00 08:26 08:58 Temperature 98.6 F Pulse Rate 99 Respiratory 16 16 Rate Blood Pressure 104/43 (mmHg) O2 Sat by Pulse 98 98 96 Oximetry 04/13/17 04/13/17 04/13/17 09:44 09:45 11:17 Temperature 98.4 F Pulse Rate 81 Respiratory 16 16 18 Rate Blood Pressure 92/39 (mmHg) O2 Sat by Pulse 93 Oximetry 04/13/17 04/13/17 04/13/17 12:09 13:30 13:48 Temperature 98.3 F 99.2 F Pulse Rate 81 92 Respiratory 16 16 16 Rate Blood Pressure 125/43 113/51 (mmHg) O2 Sat by Pulse 98 98 Oximetry 04/13/17 13:59 Temperature 98.8 F Pulse Rate 84 Respiratory 16 Rate Blood Pressure 108/58 (mmHg) O2 Sat by Pulse 96 Oximetry Oxygen Devices in Use Now: None Appearance: Patient is a 76yo female who appears younger than stated age and is sitting in the bed in [facility]. Eyes: No Scleral Icterus, PERRLA Ears/Nose/Mouth/Throat: NL Teeth, Lips, Gums, Clear Oropharnyx, Mucous Membranes Moist Neck: NL Appearance and Movements; NL JVP, Trachea Midline Respiratory: Symmetrical Chest Expansion and Respiratory Effort, Clear to Auscultation Cardiovascular: NL Sounds; No Murmurs; No JVD, RRR, No Edema Abdominal: NL Sounds; No Tenderness; No Distention, No Hepatosplenomegaly Lymphatic: No Cervical Adenopathy, No Axillary Adenopathy Extremities: No Edema, No Clubbing, Cyanosis, - - Pulses and strength WNL and symmetric in B/L LE. Skin: No Nodules or Sclerosis, - - Right Hip incision covered with bulky dressing without discharge. Result Diagrams: 04/13/17 05:52 04/13/17 05:52 Microbiology and Other Data: Microbiology 04/13/17 12:44 Transfusion Reaction Gram Stain - Final Blood Bag Assess/Plan/Problems-Billing Assessment: Patient is a 76yo female with a PMH significant for OA and anemia who is POD#1 from a RTHA which was complicated by acute blood loss anemia and is S/P 1u PRBC. - Patient Problems (1) Post-operative state Current Visit: Yes Status: Acute Code(s): Z98.890 - OTHER SPECIFIED POSTPROCEDURAL STATES SNOMED Code(s): 52672244 Comment: POD#1 from RTHA. Patient has had her catheter removed and is urinating. Patient has no had a bowel movement but is passing flatus. Hemoglobin 7.1. Transfused 1 unit, second pending. (2) Anemia Current Visit: Yes Status: Acute Code(s): D64.9 - ANEMIA, UNSPECIFIED SNOMED Code(s): 105222089 Comment: Patient has acute blood loss anemia from her surgery. Patient's last surgery was also complicated by anemia. Patient does not remember a recent investigation of her anemia. Iron panel shows low Iron, TIBC, and % Sat. Ferritin and transferrin pending. Folate and B12 pending, TSH normal. Patient is not on iron supplementation. (3) Osteoarthritis Current Visit: Yes Status: Acute Code(s): M19.90 - UNSPECIFIED OSTEOARTHRITIS, UNSPECIFIED SITE SNOMED Code(s): 361049649 Comment: S/P Total Hip replacement. Pain management per primary team. (4) Hypotension Current Visit: Yes Status: Acute Comment: Resolved with Fluid and pRBCs. (5) DVT prophylaxis Current Visit: Yes Status: Acute Code(s): IHY3906 - SNOMED Code(s): 816360059 Comment: Lovenox to coumadin. (6) Full code status Current Visit: Yes Status: Acute Code(s): Z78.9 - OTHER SPECIFIED HEALTH STATUS SNOMED Code(s): 535915956 Status and Disposition: Patient is admitted inpatient. Plan for D/C home.
[2017-04-13] MEDS ORDERED: Warfarin TAB(*) 6 MG PO ONE (17:00)
[2017-04-14 05:41] LABS: Hematocrit 29 % (35-47); Hemoglobin 9.8 g/dl (12.0-16.0); Mean Platelet Volume 8 um3 (7.4-10.4); Platelet Count 177 10^3/ul (150-450)
[2017-04-14 05:57] LABS: INR 1.56 (0.77-1.02)
[2017-04-14] MEDS: Magnesium Hydroxide LIQ* 30 ML UDC PO SCH (07:23)
[2017-04-14] MEDS: Docusate CAP* 100 MG PO SCH (07:25)
[2017-04-14] MEDS: Vitamin THERAPEUTIC TAB PO SCH (07:25)
[2017-04-14] MEDS: oxyCODONE/Acetamin 5/325 MG* TAB PO PRN ×2 (07:25→11:38)
--- NOTE | 2017-04-14 08:07 | PN ---
Progress Note - Progress Note Date of Service: 04/14/17 SOAP: Subjective: []Patient seen at bedside. She feels well today without dizziness, nausea, SON, CP. H&H, BP improved after 2 units PRBC yesterday. Patient desires D/C home today. Objective: [] Vital Signs Temp 99.1 F 04/14/17 03:32 Pulse 99 04/14/17 03:32 Resp 16 04/14/17 07:25 BP 134/42 04/14/17 03:32 Pulse Ox 94 04/14/17 03:32 Intake & Output 04/13/17 04/14/17 04/14/17 18:59 06:59 18:59 Intake Total 1989 620 Output Total 325 2049 Balance 1665 -1430 Intake: IV Fluids 639 ABX - CEFAZOLIN 55 LR 260 NS (0.9%) 324 Oral 450 620 Packed Cells 901 Output: Urine 325 0 Other: Estimated Void Medium # Voids 2 Laboratory Last Values Hgb 9.8 g/dl (12.0-16.0) L 04/14/17 04:51 Hct 29 % (35-47) L 04/14/17 04:51 Plt Count 177 10^3/ul (150-450) 04/14/17 04:51 MPV 8 um3 (7.4-10.4) 04/14/17 04:51 INR (Anticoag Therapy) 1.56 (0.77-1.02) H 04/14/17 04:51 Sodium 130 mmol/L (133-145) L 04/13/17 05:52 Potassium 3.9 mmol/L (3.5-5.0) 04/13/17 05:52 Chloride 101 mmol/L (101-111) 04/13/17 05:52 Carbon Dioxide 26 mmol/L (22-32) 04/13/17 05:52 Anion Gap 3 mmol/L (2-11) 04/13/17 05:52 BUN 14 mg/dL (6-24) 04/13/17 05:52 Creatinine 0.65 mg/dL (0.51-0.95) 04/13/17 05:52 Est GFR ( Amer) 113.4 (>60) 04/13/17 05:52 Est GFR (Non-Af Amer) 88.2 (>60) 04/13/17 05:52 BUN/Creatinine Ratio 21.5 (8-20) H 04/13/17 05:52 Glucose 107 mg/dL (70-100) H 04/13/17 05:52 Calcium 8.6 mg/dL (8.6-10.3) 04/13/17 05:52 Iron 20 ug/dL (50-212) L 04/13/17 14:26 TIBC 230 mcg/dL (250-450) L 04/13/17 14:26 % Saturation 9 % (15-55) L 04/13/17 14:26 Unsat Iron Binding 210 ug/dL 04/13/17 14:26 Transferrin Cancelled 04/13/17 05:52 Ferritin 403.3 ng/mL (11-307) H 04/13/17 14:26 Vitamin B12 199 pg/mL (180-914) 04/13/17 14:26 Folate 15.92 ng/mL (>3.99) 04/13/17 14:26 TSH 3.66 mcIU/mL (0.34-5.60) 04/13/17 14:26 Blood Type AB Positive 04/13/17 05:52 Antibody Screen Negative 04/13/17 05:52 Crossmatch See Detail 04/13/17 05:52 Transfusion React Rpt 04/13/17 12:44 Donor Unit # [id number] 04/13/17 12:44 Post-Trans Blood Type AB Positive 04/13/17 12:44 Post-Trans BLU Negative 04/13/17 12:44 Reaction Interpretation 04/13/17 12:44 General: Well appearing, NAD LLE: Dressing changed by Dr Warner this morning without complication. Dressing CDI. DF/PF intact. DP2+ BL LE: Calves supple and nontender without erythema, edema or palpable cords Assessment: []POD 2 sp left total hip arthroplasty 04/12, Dr Warner Acute bloodloss anemia Plan: []PT/OT WBAT Lovenox, coumadin 4 mg today DC today
[2017-04-14 10:12] VITALS: BP 134/53
[2017-04-14] MEDS: Enoxaparin(*) 30 MG/0.3 ML SYR SUBCUT SCH (10:23)
[2017-04-14] MEDS ORDERED: Warfarin TAB(*) 4 MG PO ONE (17:00)
--- NOTE | 2017-04-15 00:49 | DS ---
DISCHARGE SUMMARY: DATE OF ADMISSION: 04/12/17 DATE OF OPERATION: 04/12/17 SURGEON: Dr. Lucy Warner.* (DICTATED BY KOBE POWELL) CONTROL PANEL BUILDER: KOBE Khoury PRE-OP DIAGNOSIS: Severe end-stage degenerative osteoarthritis of the left hip. OPERATIVE PROCEDURE: Left total hip arthroplasty, acetabular subchondral cyst autografting using femoral head autograft. HISTORY: Ms. Juarez is a 76-year-old female with years of increasingly severe left hip pain. She failed conservative treatment with anti-inflammatories, pain medications, ambulatory assistive devices, and surgical therapy. Due to continued pain and decreased quality of life, she opted to undergo a left total hip arthroplasty. HOSPITAL COURSE: Ms. Juarez was admitted to [facility] on 04/12/17. She underwent a left total hip arthroplasty with acetabular subchondral cyst autograft using femoral head autograft without complication. She was taken to the PACU in stable condition for a brief recovery. She was then transferred to the short-stay surgical unit again in stable condition. She was seen postop day 0, status post the left total hip arthroplasty by this mortgage underwriter due to low blood pressure. A 500 mL bolus of fluid was ordered by Dr. Salmeron, her anesthesiologist, and later the same night, hospitalist service was consulted. The patient's rate of fluid infusion of lactated Ringer's was increased to 125 cc per hour and a 1 L bolus of normal saline was added. Blood pressures were ranging into the 90s/50s and the lowest blood pressure was 83/35. After these stated measures were taken, the patient's blood pressure did rebound towards more of a normal range. On postop day 1, 04/13/17, two units of packed red blood cells were ordered for the patient due to hemoglobin of 7.1, hematocrit of 21. At this time, her INR was 1.02. The patient was well appearing, in no acute distress. Dressing was clean, dry, and intact with dorsiflexion and plantarflexion intact. Dorsal pedis, posterior tibial pulses were 2+. Calves were supple and nontender without erythema, edema, or palpable cords. Postop day 2, the patient was seen at bedside, feeling very well without dizziness, nausea, shortness of breath, or chest pain. Her hemoglobin and hematocrit had improved to 9.8 and 29. Her INR was 1.56. Today, her blood pressure was 134/ 42. She was feeling well enough for discharge home. The patient is deemed to be medically and orthopedically stable for discharge home. DISCHARGE MEDICATIONS: 1. Docusate 100 mg p.o. b.i.d. 2. Percocet 5/325 two tabs p.o. q.4 hours p.r.n., max daily dose of 10. 3. Warfarin 2 mg tabs, take 1 to 3 tabs daily depending on INR draws. KOBE POWELL [id number]/[facility] #: [id number] JUAN CARLOS
== END 2017-04-14 11:55 | disposition home health service (06) | DRG 470 ==
LOC: AA 06:19 → SSU 13:19
PROVIDERS: ADMIT Orthopaedic Surgery Adult Reconstructive Orthopaedic Surgery; ATTEND Orthopaedic Surgery Adult Reconstructive Orthopaedic Surgery
PROC: 0QB50ZZ Excision of Left Acetabulum, Open Approach (ICD-10-PCS; 2017-04-12)
PROC: 0QU507Z Supplement Left Acetabulum with Autologous Tissue Substitute, Open Approach (ICD-10-PCS; 2017-04-12)
PROC: 30233N1 Transfusion of Nonautologous Red Blood Cells into Peripheral Vein, Percutaneous Approach (ICD-10-PCS; 2017-04-12)
PROC: 0SRB04Z Replacement of Left Hip Joint with Ceramic on Polyethylene Synthetic Substitute, Open Approach (ICD-10-PCS; principal; 2017-04-12 08:00)
DX: M16.12 Unilateral primary osteoarthritis, left hip (principal); Z96.641 Presence of right artificial hip joint; D62 Acute posthemorrhagic anemia; I95.81 Postprocedural hypotension; M85.652 Other cyst of bone, left thigh; F17.210 Nicotine dependence, cigarettes, uncomplicated; Z82.61 Family history of arthritis; Z82.0 Family history of epilepsy and other diseases of the nervous system; Z72.89 Other problems related to lifestyle
CPT/HCPCS: 36415; 80048; 82607; 82728; 82746; 83540; 83550; 84443; 85014; 85018; 85049; 85610; 86078; 86850; 86900; 86901; 86922; 94760; A9270-GY; C1713; C1776; J0690; J1100; J1200; J1650; J2250; J3010; P9040

== ENCOUNTER 2018-08-22 07:36 | Emergency (ER) | payer MEDICARE, BC ==
[2018-08-22 07:49] VITALS: BP 122/47
--- NOTE | 2018-08-22 08:11 | UC ---
General HPI - HPI Summary HPI Summary: C/O ear pain and hearing loss. COncerned because she is flying to [place] for her grandson's highschool graduation. Started with a cold two weeks ago, cold symptoms seemed to have improved however she has worsened left ear pain and hearing loss in both ears over the past few days. No fever. Cough has improved. States last year she started developing seasonal allergies. Started taking benadryl but woke dizzy this morning. Also started flonase. Meds: REviewed - History of Current Complaint Chief Complaint: UCEar Stated Complaint: PLUGGED EARS Time Seen by Provider: 08/22/18 07:53 Pain Intensity: 0 - Allergy/Home Medications Allergies/Adverse Reactions: Allergies Allergy/AdvReac Type Severity Reaction Status Date / Time terbinafine [From Lamisil] Allergy Anaphylatic Verified 08/22/18 07:50 Shock PMH/Surg Hx/FS Hx/Imm Hx Previously Healthy: Yes - Surgical History Surgical History: None Surgery Procedure, Year, and Place: Left hip replacement 12/20/2016 [facility] – [place], [place]. Tonsils adenoids as a child. Oral surgery in office - Family History Known Family History: Positive: Cardiac Disease - Social History Alcohol Use: Occasionally Alcohol Amount: 2 glasses of wine Substance Use Type: None Smoking Status (MU): Light Every Day Tobacco Smoker Amount Used/How Often: reports 4 cigs per day for 60 years Have You Smoked in the Last Year: Yes - Immunization History Most Recent Influenza Vaccination: 2016 Most Recent Pneumonia Vaccination: 04/24/2007 Review of Systems All Other Systems Reviewed And Are Negative: Yes Constitutional: Positive: Negative ENT: Positive: Ear Ache, Sinus Congestion Physical Exam Triage Information Reviewed: Yes Appearance: Well-Appearing Vital Signs: Initial Vital Signs Temp 97.0 F 08/22/18 07:45 Pulse 92 08/22/18 07:45 Resp 18 08/22/18 07:45 BP 122/47 08/22/18 07:45 Pulse Ox 95 08/22/18 07:45 Vital Signs Reviewed: Yes ENT: Positive: Pharyngeal erythema, Nasal congestion, Other - left ear: cerumen removed, TM: erythematous and opaque right ear: serous fluid, mild air fluid level, mild erythema Neck: Positive: Supple Respiratory: Positive: Lungs clear, Normal breath sounds Cardiovascular: Positive: RRR, No Murmur Course/Dx - Course Course Of Treatment: This is a 77 yr old here with ear pain and hearing loss Assessment Mild acute otitis on left with cerumen impaction, removed by myselt right acute serous otitis Plan Recommend starting Amoxicillin as prescribed Discontinue benadryl REcommend Zyrtec, Claritin or allergra - all over the counter allergy medications Continue flonase as directed If symptoms persist or worsen, recommend follow up with your primary care physician or return to urgent care - Diagnoses Provider Diagnosis: Acute otitis media, Serous otitis media Discharge - Sign-Out/Discharge Documenting (check all that apply): Patient Departure All imaging exams completed and their final reports reviewed: No Studies - Discharge Plan Condition: Good Disposition: HOME Prescriptions: Amoxicillin PO (*) [Amoxicillin 875 MG (*)] 875 mg PO BID #20 tab Patient Education Materials: Ear Infection (ED) Referrals: Michel Figueroa MD [Primary Care Provider] - Additional Instructions: Recommend starting Amoxicillin as prescribed Discontinue benadryl REcommend Zyrtec, Claritin or allergra - all over the counter allergy medications Continue flonase as directed If symptoms persist or worsen, recommend follow up with your primary care physician or return to urgent care - Billing Disposition and Condition Condition: GOOD Disposition: Home
== END 2018-08-22 08:10 | disposition home or self-care (01) ==
LOC: UCEAST 07:36
DX: H65.02 Acute serous otitis media, left ear (principal); H61.22 Impacted cerumen, left ear; F17.210 Nicotine dependence, cigarettes, uncomplicated; Z88.8 Allergy status to other drugs, medicaments and biological substances
CPT/HCPCS: 99212; G0463

== ENCOUNTER 2023-10-09 06:19 | Observation (INO) ==
[2023-10-09 06:55] LABS: INR 1.03 (0.83-1.13)
[2023-10-09 07:03] LABS: ABS Lymphocytes 0.6 10^3/uL (1.0-4.8); ABS Monocytes 0.5 10^3/uL (0.0-0.9); ABS Neutrophils 2.4 10^3/uL (1.5-7.6); ABS Nucleated RBC 0.01 10^3/ul; Eosinophil % 0.3 %; Hematocrit 24.1 % (35-45); Hemoglobin 8.4 g/dL (11.5-14.3); Lymphocyte % 16.2 %; Mean Corpuscular Hemoglobin 37.3 pg (27-33); Mean Corpuscular Hgb Conc 35.1 g/dL (31-36); Mean Corpuscular Volume 106.4 fL (80-97); Mean Platelet Volume 7.1 fL (7.5-11.2); Nucleated Red Blood Cells % 0.2 %/100WBC (0.0-0.8); Platelet Count 116 10^3/uL (150-450); Red Blood Count 2.26 10^6/uL (3.63-4.92); Red Cell Distribution Width 25.6 % (12-17); White Blood Count 3.5 10^3/uL (3.8-11.8)
[2023-10-09] MEDS: Ondansetron 4 mg VIAL 2 MG/ML 2 ml VIAL IV ONE ×2 (07:24→08:59)
[2023-10-09] MEDS: Morphine 4 MG/ML VIAL (1 ml) IV ONE (08:03)
[2023-10-09 08:07] LABS: High Sensitivity Troponin 1 Hr 10 pg/mL (<15)
[2023-10-09 08:10] LABS: Albumin 3.2 g/dL (3.2-5.2); Albumin/Globulin Ratio 0.7 (1-3); Calcium 5.8 mg/dL (8.6-10.3); Creatinine, Serum 1.41 mg/dL (0.51-0.95); Globulin 4.7 g/dL (2-4); Potassium 3.2 mmol/L (3.5-5.0); Total Bilirubin 0.5 mg/dL (0.2-1.0); Total Protein 7.9 g/dL (6.4-8.9); eGFR CKD-EPI 36.8 (>60)
[2023-10-09] MEDS: Calcium Carb (TUMS) 500 mg CHEW TAB PO ONE (08:47)
[2023-10-09 09:03] LABS: Magnesium 1.2 mg/dL (1.9-2.7)
[2023-10-09] MEDS: CALCIUM GLUCONATE 1GM/50ML NS 1 GM/50 ML BAG IV ONE (09:12)
[2023-10-09] MEDS: diazePAM INJ CARPUJECT 5 MG/ML SYRINGE IV ONE (09:42)
[2023-10-09] MEDS: Iodixanol (CONTRAST) 320 MG/ML 100 ML SDV IV ONE (10:20)
[2023-10-09] MEDS: Magnesium Sulfate 2 gm BAG 2 GM/50 ML BAG IVPB ONE ×2 (10:46→15:30)
[2023-10-09] MEDS: Prochlorperazine 5 mg/ml 2 ml VIAL (10 mg) IV PRN (12:54)
[2023-10-09] MEDS: KCL 20 MEQ/100 ML IVPREMIX 20 MEQ/100 ML BAG IV SCH (14:04)
[2023-10-09] MEDS: Calcium Gluconate 2 GM in NS 0.9% 100 ml BAG 100 ML IVPB ONE (15:30)
[2023-10-09] MEDS: Morphine 2 MG/ML SYRINGE IV PRN (15:31)
[2023-10-09] MEDS: Ondansetron 4 mg VIAL 2 MG/ML 2 ml VIAL IV PRN (16:45)
[2023-10-10 05:30] LABS: Hematocrit 23.7 % (35-45); Mean Corpuscular Hemoglobin 36.3 pg (27-33); Mean Corpuscular Hgb Conc 33.7 g/dL (31-36); Mean Corpuscular Volume 107.7 fL (80-97); Mean Platelet Volume 7.7 fL (7.5-11.2); Platelet Count 123 10^3/uL (150-450); Red Blood Count 2.21 10^6/uL (3.63-4.92); White Blood Count 6.5 10^3/uL (3.8-11.8)
[2023-10-10 05:48] LABS: ABS Lymphocytes 0.5 10^3/uL (1.0-4.8); ABS Monocytes 0.6 10^3/uL (0.0-0.9); ABS Neutrophils 5.3 10^3/uL (1.5-7.6); ABS Nucleated RBC 0.01 10^3/ul; Anisocytosis 2+; Eosinophil % 0.1 %; Macrocytosis 1+; Nucleated Red Blood Cells % 0.1 %/100WBC (0.0-0.8)
[2023-10-10 06:21] LABS: Calcium 6.6 mg/dL (8.6-10.3); Creatinine, Serum 1.25 mg/dL (0.51-0.95); Potassium 4.4 mmol/L (3.5-5.0); eGFR CKD-EPI 42.5 (>60)
[2023-10-10] MEDS: Dexamethasone IV 4 MG/ML VIAL 1 ml VIAL IV SLOW PU SCH (08:43)
[2023-10-10] MEDS: Iodixanol (CONTRAST) 320 MG/ML 100 ML SDV IV ONE (09:37)
[2023-10-10 11:24] LABS: Magnesium 2.1 mg/dL (1.9-2.7)
[2023-10-10] MEDS: Calcium Carb (TUMS) 500 mg CHEW TAB PO SCH (11:52)
[2023-10-10] MEDS: Lactated Ringers 1000 ml BAG 1,000 ML IV SCH (11:52)
[2023-10-10] MEDS: Enoxaparin 30 MG/0.3 ML SYR SUBCUT SCH (20:24)
[2023-10-11 06:51] LABS: Albumin 2.8 g/dL (3.2-5.2); Albumin/Globulin Ratio 0.6 (1-3); Calcium 6.4 mg/dL (8.6-10.3); Creatinine, Serum 1.09 mg/dL (0.51-0.95); Globulin 4.4 g/dL (2-4); Magnesium 1.6 mg/dL (1.9-2.7); Total Bilirubin 0.4 mg/dL (0.2-1.0); Total Protein 7.2 g/dL (6.4-8.9); eGFR CKD-EPI 50.1 (>60)
[2023-10-11 07:19] LABS: ABS Lymphocytes 0.7 10^3/uL (1.0-4.8); ABS Monocytes 0.7 10^3/uL (0.0-0.9); ABS Neutrophils 4.2 10^3/uL (1.5-7.6); ABS Nucleated RBC 0.01 10^3/ul; Hematocrit 21.2 % (35-45); Hemoglobin 7.4 g/dL (11.5-14.3); Lymphocyte % 11.9 %; Mean Corpuscular Hemoglobin 37.3 pg (27-33); Mean Corpuscular Hgb Conc 34.7 g/dL (31-36); Mean Corpuscular Volume 107.4 fL (80-97); Mean Platelet Volume 7.3 fL (7.5-11.2); Nucleated Red Blood Cells % 0.1 %/100WBC (0.0-0.8); Platelet Count 118 10^3/uL (150-450); Red Blood Count 1.97 10^6/uL (3.63-4.92); Red Cell Distribution Width 25.2 % (12-17); White Blood Count 5.6 10^3/uL (3.8-11.8)
[2023-10-11] MEDS: Aspirin EC 81 mg TAB.EC (enteric coated) PO SCH (09:30)
[2023-10-11] MEDS: Magnesium Sulfate 2 gm BAG 2 GM/50 ML BAG IVPB ONE (09:31)
[2023-10-11] MEDS: Magnesium Sulfate IV 1GM/100ML 1 GM/100 ML BAG IV ONE (10:39)
[2023-10-11 16:45] LABS: Lambda Free Light Chain, S 179 mg/dL
[2023-10-11 18:02] LABS: Immunoglobulin G 3120 mg/dL (767 - 1590); Immunoglobulin M <5 mg/dL (37 - 286)
[2023-10-11 18:22] VITALS: BP 120/58
[2023-10-12 12:30] LABS: Flag, M-protein Isotype Positive (Negative); Immunoglobulin A (IgA), S 7 mg/dL (61 - 356); Immunoglobulin G (IgG), S 3660 mg/dL (767 - 1590); Immunoglobulin M (IgM), S <5 mg/dL (37 - 286); M-protein GL 3.243 g/dL
== END 2023-10-11 18:42 | disposition home or self-care (01) ==
LOC: EDHOLD 06:19 → ED 06:19 → SUATTDRO 12:21 → MEDTELE 10-10 07:20
PROVIDERS: ADMIT Hospitalist; ATTEND Student in an Organized Health Care Education/Training Program

== ENCOUNTER 2023-10-21 05:09 | Inpatient (IN) ==
[2023-10-21] MEDS: Ondansetron 4 mg VIAL 2 MG/ML 2 ml VIAL IV ONE ×2 (06:08→12:31)
[2023-10-21 06:36] LABS: Activated Partial Thrombo Time 24.3 seconds (26.0-38.0); INR 0.95 (0.83-1.13)
[2023-10-21 06:52] LABS: Albumin 3.2 g/dL (3.2-5.2); Albumin/Globulin Ratio 0.7 (1-3); C Reactive Protein 95.16 mg/L (<8.01); Calcium 6.4 mg/dL (8.6-10.3); Creatinine, Serum 1.64 mg/dL (0.51-0.95); Globulin 4.4 g/dL (2-4); Total Bilirubin 0.4 mg/dL (0.2-1.0); Total Protein 7.6 g/dL (6.4-8.9); eGFR CKD-EPI 30.7 (>60)
[2023-10-21 07:06] LABS: Hematocrit 24.7 % (35-45); Hemoglobin 8.3 g/dL (11.5-14.3); Mean Corpuscular Hemoglobin 35.6 pg (27-33); Mean Corpuscular Hgb Conc 33.6 g/dL (31-36); Mean Corpuscular Volume 105.8 fL (80-97); Red Blood Count 2.33 10^6/uL (3.63-4.92); Red Cell Distribution Width 24.5 % (12-17); White Blood Count 7.9 10^3/uL (3.8-11.8)
[2023-10-21 07:50] LABS: High Sensitivity Troponin 1 Hr 18 pg/mL (<15)
[2023-10-21 08:04] LABS: ABS Lymphocytes 0.3 10^3/uL (1.0-4.8); ABS Monocytes 1.1 10^3/uL (0.0-0.9); ABS Neutrophils 6.5 10^3/uL (1.5-7.6); ABS Nucleated RBC 0.01 10^3/ul; Eosinophil % 0.1 %; Lymphocyte % 3.6 %; Mean Platelet Volume 7.3 fL (7.5-11.2); Nucleated Red Blood Cells % 0.2 %/100WBC (0.0-0.8); Platelet Count 59 10^3/uL (150-450)
[2023-10-21] MEDS: Iodixanol (CONTRAST) 320 MG/ML 100 ML SDV IV ONE (09:29)
[2023-10-21] MEDS: Piperacillin/Tazobac 3.375 BAG 3.375 GM/100 ML BAG IV ONE (11:07)
[2023-10-21] MEDS: Albuterol/Ipratropium NEB.SOL (2.5/0.5 MG) 3 ML NEB.SOLN INH ONE (11:54)
[2023-10-21] MEDS: Dexamethasone IV 4 MG/ML VIAL 1 ml VIAL IV SLOW PU ONE (12:09)
[2023-10-21] MEDS: Vancomycin 1,000 MG in NS 0.9% 250 ml 250 ML IVPB ONE (12:21)
[2023-10-21 15:14] LABS: Magnesium 2.5 mg/dL (1.9-2.7)
[2023-10-21] MEDS: Albuterol/Ipratropium NEB.SOL (2.5/0.5 MG) 3 ML NEB.SOLN INH SCH (15:56)
[2023-10-21] MEDS ORDERED: Lidocaine 4% TOPICAL 50 ML TOP.SOLN TOPICAL SCH (16:00)
[2023-10-21] MEDS: NS 0.9% 1000 ml BAG 1,000 ML IV SCH (16:04)
[2023-10-21] MEDS: Furosemide 20 mg/2 ml IV VIAL IV ONE (16:09)
[2023-10-21] MEDS: Cyanocobalamin INJ 1,000 MCG/ML VIAL 1 ML VIAL IM ONE (16:11)
[2023-10-21] MEDS: Morphine 4 MG/ML VIAL (1 ml) IV ONE (16:21)
[2023-10-21] MEDS: Azithromycin 500 mg/250 ml NS 500 MG/250 ML BAG IVPB ONE (16:21)
[2023-10-21] MEDS: Lidocaine PATCH 5% PATCH TRANSDERM SCH (17:45)
[2023-10-21] MEDS: CALCIUM GLUCONATE 1GM/50ML NS 1 GM/50 ML BAG IV ONE (17:50)
[2023-10-21] MEDS: PEG PROPYLENE GLYCOL BOTH EYES SCH (20:23)
[2023-10-21 20:55] LABS: Calcium 6.7 mg/dL (8.6-10.3); Creatinine, Serum 1.43 mg/dL (0.51-0.95); Potassium 4.5 mmol/L (3.5-5.0); eGFR CKD-EPI 36.2 (>60)
[2023-10-22 06:57] LABS: ABS Lymphocytes 0.3 10^3/uL (1.0-4.8); ABS Monocytes 0.9 10^3/uL (0.0-0.9); ABS Neutrophils 7.5 10^3/uL (1.5-7.6); Hematocrit 21.7 % (35-45); Hemoglobin 7.4 g/dL (11.5-14.3); Lymphocyte % 3.8 %; Mean Corpuscular Hgb Conc 34.3 g/dL (31-36); Nucleated Red Blood Cells % 0.3 %/100WBC (0.0-0.8); Platelet Count 41 10^3/uL (150-450); Red Blood Count 2.06 10^6/uL (3.63-4.92); Red Cell Distribution Width 24.2 % (12-17); White Blood Count 8.7 10^3/uL (3.8-11.8)
[2023-10-22 06:58] LABS: ABS Nucleated RBC 0.03 10^3/ul
[2023-10-22 07:48] LABS: Creatinine, Serum 1.29 mg/dL (0.51-0.95); Magnesium 1.8 mg/dL (1.9-2.7); Potassium 4.6 mmol/L (3.5-5.0); eGFR CKD-EPI 40.9 (>60)
[2023-10-22] MEDS: Aspirin EC 81 mg TAB.EC (enteric coated) PO SCH (09:53)
[2023-10-22] MEDS: cefTRIAXone 1 gm/50 mL D5W 1 GM/50 ML BAG IV SCH (09:53)
[2023-10-22] MEDS: Magnesium Sulfate 2 gm BAG 2 GM/50 ML BAG IVPB ONE ×2 (10:55→12:05)
[2023-10-22] MEDS: CALCIUM GLUCONATE 1GM/50ML NS 1 GM/50 ML BAG IV SCH (12:05)
[2023-10-23 05:53] LABS: Hematocrit 22.8 % (35-45); Hemoglobin 7.8 g/dL (11.5-14.3); Mean Corpuscular Hemoglobin 35.9 pg (27-33); Mean Corpuscular Hgb Conc 34.3 g/dL (31-36); Mean Corpuscular Volume 104.7 fL (80-97); Mean Platelet Volume 7.9 fL (7.5-11.2); Platelet Count 43 10^3/uL (150-450); Red Blood Count 2.18 10^6/uL (3.63-4.92); Red Cell Distribution Width 25.3 % (12-17); White Blood Count 7.1 10^3/uL (3.8-11.8)
[2023-10-23 06:22] LABS: ABS Lymphocytes 0.7 10^3/uL (1.0-4.8); ABS Monocytes 0.6 10^3/uL (0.0-0.9); ABS Neutrophils 5.7 10^3/uL (1.5-7.6); ABS Nucleated RBC 0.02 10^3/ul; Eosinophil % 0.1 %; Lymphocyte % 10.4 %; Nucleated Red Blood Cells % 0.3 %/100WBC (0.0-0.8)
[2023-10-23 07:06] LABS: Albumin 2.9 g/dL (3.2-5.2); Albumin/Globulin Ratio 0.7 (1-3); Calcium 6.9 mg/dL (8.6-10.3); Creatinine, Serum 0.98 mg/dL (0.51-0.95); Globulin 3.9 g/dL (2-4); Magnesium 2.1 mg/dL (1.9-2.7); Potassium 3.9 mmol/L (3.5-5.0); Total Bilirubin 0.6 mg/dL (0.2-1.0); Total Protein 6.8 g/dL (6.4-8.9); eGFR CKD-EPI 56.9 (>60)
[2023-10-23 08:03] LABS: Urine Appearance Clear; Urine Bilirubin Negative (Negative); Urine Blood Negative (Negative); Urine Color Light-Yellow; Urine Glucose Negative (Negative); Urine Ketones Negative (Negative); Urine Nitrite Negative (Negative); Urine Protein Trace (Negative); Urine Specific Gravity 1.012 (1.002-1.030); Urine Urobilinogen Negative (Negative)
[2023-10-23] MEDS: ceFAZolin 2 GM in NS PREMIX 2 GM/100 ML BAG IVPB SCH (09:11)
[2023-10-23 09:44] LABS: Urine Bacteria Absent /HPF (Absent); Urine Red Blood Cell Absent /HPF (0-Trace); Urine Squamous Epithelial Cell Present /HPF (Absent); Urine White Blood Cell 1+(6-10/hpf) /HPF (0-Trace)
[2023-10-24 06:23] LABS: Albumin 2.6 g/dL (3.2-5.2); Albumin/Globulin Ratio 0.7 (1-3); Calcium 6.5 mg/dL (8.6-10.3); Creatinine, Serum 0.92 mg/dL (0.51-0.95); Globulin 3.6 g/dL (2-4); Magnesium 1.6 mg/dL (1.9-2.7); Potassium 3.4 mmol/L (3.5-5.0); Total Bilirubin 0.5 mg/dL (0.2-1.0); Total Protein 6.2 g/dL (6.4-8.9); eGFR CKD-EPI 61.4 (>60)
[2023-10-24 06:44] LABS: Hematocrit 23.3 % (35-45); Hemoglobin 7.9 g/dL (11.5-14.3); Mean Corpuscular Hemoglobin 35.8 pg (27-33); Mean Corpuscular Hgb Conc 33.8 g/dL (31-36); Mean Corpuscular Volume 106.1 fL (80-97); Red Cell Distribution Width 24.6 % (12-17); White Blood Count 7.2 10^3/uL (3.8-11.8)
[2023-10-24 07:43] LABS: ABS Lymphocytes 0.5 10^3/uL (1.0-4.8); ABS Monocytes 0.4 10^3/uL (0.0-0.9); ABS Neutrophils 6.3 10^3/uL (1.5-7.6); ABS Nucleated RBC 0.01 10^3/ul; Eosinophil % 0.2 %; Lymphocyte % 6.6 %; Mean Platelet Volume 7.7 fL (7.5-11.2); Nucleated Red Blood Cells % 0.2 %/100WBC (0.0-0.8); Platelet Count 41 10^3/uL (150-450)
[2023-10-24] MEDS ORDERED: Acetaminophen IV 1 GM/100ML 1,000 MG/100 ML BAG IV PRN (11:06)
[2023-10-24] MEDS ORDERED: Ondansetron ODT 4 mg TAB 4 MG TAB SL PRN (11:07)
[2023-10-24] MEDS: Sulfur Hexaflouride MICROSPHR 25 MG VIAL IV ONE (11:16)
[2023-10-24] MEDS: Magnesium Sulfate 2 gm BAG 2 GM/50 ML BAG IVPB ONE (12:19)
[2023-10-24] MEDS: Ondansetron 4 mg VIAL 2 MG/ML 2 ml VIAL IV PRN (12:19)
[2023-10-24] MEDS: Potassium Chloride LIQUID 20 MEQ/15 ML LIQUID PO ONE (12:33)
[2023-10-24 15:53] LABS: Body Fluid Total Nucleated 449 /mcL
[2023-10-24] MEDS: KCL 20 MEQ/100 ML IVPREMIX 20 MEQ/100 ML BAG IV SCH (18:30)
[2023-10-24 21:02] LABS: Body Fluid Appearance Cloudy; Body Fluid Color Amber; Body Fluid Source Pleural Fluid
[2023-10-24 21:06] LABS: Body Fluid Mono 41 %; Body Fluid Total Cells Counted 200
[2023-10-25 05:47] LABS: Hematocrit 23.5 % (35-45); Hemoglobin 7.9 g/dL (11.5-14.3); Mean Corpuscular Hemoglobin 35.4 pg (27-33); Mean Corpuscular Hgb Conc 33.7 g/dL (31-36); Mean Platelet Volume 8.2 fL (7.5-11.2); Platelet Count 50 10^3/uL (150-450); Red Blood Count 2.24 10^6/uL (3.63-4.92); Red Cell Distribution Width 23.9 % (12-17); White Blood Count 7.8 10^3/uL (3.8-11.8)
[2023-10-25 06:10] LABS: C Reactive Protein 32.97 mg/L (<8.01); Calcium 6.3 mg/dL (8.6-10.3); Creatinine, Serum 0.86 mg/dL (0.51-0.95); Potassium 4.1 mmol/L (3.5-5.0); eGFR CKD-EPI 66.6 (>60)
[2023-10-25 06:13] LABS: ABS Lymphocytes 0.4 10^3/uL (1.0-4.8); ABS Monocytes 0.5 10^3/uL (0.0-0.9); ABS Neutrophils 6.9 10^3/uL (1.5-7.6); Anisocytosis 2+; Eosinophil % 0.1 %; Lymphocyte % 5.2 %; Macrocytosis 1+; Nucleated Red Blood Cells % 0.1 %/100WBC (0.0-0.8)
[2023-10-25] MEDS: Cyanocobalamin INJ 1,000 MCG/ML VIAL 1 ML VIAL IM ONE (10:36)
[2023-10-25] MEDS: fentaNYL PATCH 12 MCG/HR 1 PATCH TRANSDERM SCH (10:37)
[2023-10-25] MEDS: CALCIUM GLUCONATE 1GM/50ML NS 1 GM/50 ML BAG IV SCH (11:41)
[2023-10-25] MEDS: fentaNYL Patch Check Q Shift NOTE FOLLOW UP SCH (23:52)
[2023-10-26 07:32] LABS: Hematocrit 28.5 % (35-45); Hemoglobin 9.9 g/dL (11.5-14.3); Mean Corpuscular Hemoglobin 35.4 pg (27-33); Mean Corpuscular Hgb Conc 34.7 g/dL (31-36); Mean Corpuscular Volume 102.1 fL (80-97); Mean Platelet Volume 7.7 fL (7.5-11.2); Platelet Count 55 10^3/uL (150-450); Red Blood Count 2.79 10^6/uL (3.63-4.92); Red Cell Distribution Width 22.7 % (12-17); White Blood Count 7.5 10^3/uL (3.8-11.8)
[2023-10-26 07:58] LABS: Anion Gap 14 mmol/L (2-16); Blood Urea Nitrogen 11 mg/dL (6-24); CO2 Carbon Dioxide 18 mmol/L (22-32); Calcium 6.5 mg/dL (8.6-10.3); Chloride 102 mmol/L (101-111); Creatinine, Serum 0.79 mg/dL (0.51-0.95); Glucose 62 mg/dL (70-100); Potassium 3.4 mmol/L (3.5-5.0); Sodium 134 mmol/L (135-145); eGFR CKD-EPI 73.7 (>60)
[2023-10-26 08:20] LABS: ALT < 3 U/L (7-52); AST 13 U/L (13-39); Albumin 2.7 g/dL (3.2-5.2); Albumin/Globulin Ratio 0.8 (1-3); Alkaline Phosphatase 55 U/L (35-149); Globulin 3.6 g/dL (2-4); Magnesium 1.5 mg/dL (1.9-2.7); Total Bilirubin 0.6 mg/dL (0.2-1.0); Total Protein 6.3 g/dL (6.4-8.9)
[2023-10-26 08:53] LABS: ABS Lymphocytes 0.3 10^3/uL (1.0-4.8); ABS Monocytes 0.7 10^3/uL (0.0-0.9); ABS Neutrophils 6.4 10^3/uL (1.5-7.6); ABS Nucleated RBC 0.01 10^3/ul; Eosinophil % 0.3 %; Lymphocyte % 3.7 %; Nucleated Red Blood Cells % 0.1 %/100WBC (0.0-0.8)
[2023-10-26] MEDS: KCL 20 MEQ/100 ML IVPREMIX 20 MEQ/100 ML BAG IV SCH (09:06)
[2023-10-26] MEDS: Magnesium Sulfate 2 gm BAG 2 GM/50 ML BAG IVPB ONE (09:06)
[2023-10-26 10:19] VITALS: BP 153/82
[2023-10-26 12:02] LABS: Lactate Dehydrogenase, BF 173 U/L
[2023-10-26 15:44] LABS: Albumin, BF 1.4 g/dL; Fluid Type, Albumin PLEURAL; Fluid Type, Protein, Total PLEURAL; Glucose, BF 87 mg/dL; Total Protein, BF 2.5 g/dL
== END 2023-10-26 13:50 | disposition home or self-care (01) | DRG 186 ==
LOC: ED 05:09 → EDHOLD 05:09 → SUATTDRO 14:11 → MEDTELE 15:03
PROVIDERS: ADMIT Internal Medicine; ATTEND Internal Medicine